=== PATIENT | female | born 1995 | race Caucasian/White ===

== ENCOUNTER 2017-05-29 23:49 | Inpatient (IN) | payer MEDICAID, OTHER, SELFPAY ==
[~2017-05-29] VITALS: Ht 144.8 cm; Wt 41.2 kg
[2017-05-30] MEDS ORDERED: LORazepam INTENSOL 2 MG/ML PO ONE
[2017-05-30] MEDS ORDERED: LORazepam 2 MG/ML, 1ML ONE ×2 (00:16→01:32)
[2017-05-30 00:30] LABS: ASPARTATE AMINO TRANSFERASE 23 U/L (15-37); BLOOD UREA NITROGEN 7 mg/dL (7-18)
[2017-05-30] MEDS ORDERED: LORazepam 2 MG/ML, 1ML IVPush ONE ×2 (00:30→01:30)
[2017-05-30] MEDS ORDERED: SODIUM CHLORIDE 0.9% 1,000ML IVBOLUS ONE (00:30)
[2017-05-30 00:45] LABS: ABG COLLECTION SITE RIGHT RADIAL; COLLATERAL CIRCULATION TESTING NORMAL
[2017-05-30] MEDS ORDERED: POTASSIUM CHLORIDE 20 MEQ in SODIUM CHLORIDE 0.9% 1,000 ML IV ONE (01:38)
[2017-05-30] MEDS ORDERED: LORazepam 2 MG/ML, 1ML IVPush PRN (02:00)
[2017-05-30] MEDS ORDERED: NS + 20MEQ KCL 1,000 ML IV ONE (02:37)
[2017-05-30] MEDS ORDERED: DIVALPROEX 500 MG TABLET.DR PO ONE (03:00)
[2017-05-30] MEDS ORDERED: DIVALPROEX 125 MG CAP.SPRINK PO ONE ×2 (03:00)
[2017-05-30] MEDS ORDERED: NS + 20MEQ KCL 1,000 ML IV SCH (04:07)
[2017-05-30 04:22] VITALS: BP 109/72
[2017-05-30] MEDS ORDERED: ONDANSETRON 2MG/ML, 2ML IVPush PRN (04:30)
[2017-05-30] MEDS ORDERED: morphine SULFATE 10 MG/ML, 1ML IVPush PRN (04:30)
[2017-05-30] MEDS ORDERED: ACETAMINOPHEN 650 MG/20.3 ML UDC PO PRN (04:30)
[2017-05-30] MEDS ORDERED: POLYETHYLENE GLYCOL 17 GM PACKET PO PRN (04:30)
[2017-05-30] MEDS ORDERED: ENOXAPARIN 40 MG/0.4 ML SQ SCH (04:30)
[2017-05-30] MEDS ORDERED: DOCUSATE 100 MG CAPSULE PO PRN (04:30)
[2017-05-30] MEDS: DIVALPROEX 125 MG CAP.SPRINK PEG SCH ×2 (05:26→12:40)
[2017-05-30] MEDS ORDERED: LORA-446 PO ×2 (05:39→11:48)
[2017-05-30] MEDS ORDERED: [UNRECOGNIZED DRUG - CODE] GT (05:39)
[2017-05-30] MEDS ORDERED: PHARMACY MAY ADJ FOR RENAL FX MC SCH (07:30)
[2017-05-30] MEDS ORDERED: LIDOCAINE-MPF 1%, 2ML ENDO PRN (07:30)
[2017-05-30] MEDS ORDERED: ALBUTEROL/IPRATROPIUM 2.5MG/0.5MG, 3 ML INLINE SCH (07:30)
[2017-05-30] MEDS ORDERED: SENNA/DOCUSATE TABLET PO SCH (09:00)
[2017-05-30] MEDS ORDERED: DIVA125C PEG (11:48)
== END 2017-05-30 16:00 | disposition home or self-care (01) | DRG 101 ==
LOC: ED 05-30 00:13 → EDIP 05-30 01:38 → CCU 05-30 03:52
PROVIDERS: ADMIT Family Medicine; ATTEND Family Medicine
PROC: 0T9B70Z Drainage of Bladder with Drainage Device, Via Natural or Artificial Opening (ICD-10-PCS; principal; 2017-05-30)
PROC: 5A1935Z Respiratory Ventilation, Less than 24 Consecutive Hours (ICD-10-PCS; 2017-05-30)
DX: G40.909 Epilepsy, unspecified, not intractable, without status epilepticus (principal); Z99.11 Dependence on respirator [ventilator] status; J96.10 Chronic respiratory failure, unspecified whether with hypoxia or hypercapnia; G80.9 Cerebral palsy, unspecified; Q90.9 Down syndrome, unspecified; Z93.0 Tracheostomy status; Z93.1 Gastrostomy status
CPT/HCPCS: 36415; 36600; 71010; 80053; 80164; 81001; 82803; 85025; 87081; 94002; 94003; 96361; 96365; 96375; 96376; J1650; J3480; J2060; J7030

== ENCOUNTER 2018-08-07 07:50 | Inpatient (IN) | payer MEDICAID ==
[~2018-08-07] VITALS: Ht 147.3 cm; Wt 35.8 kg
[~2018-08-07 07:50] MED LIST: DIVA125C2 PEG; LORA-446 PO; [UNRECOGNIZED DRUG - CODE] GT
[2018-08-07] MEDS ORDERED: SODIUM CHLORIDE 0.9% 1,000 ML IV ONE (07:56)
[2018-08-07] MEDS ORDERED: SODIUM CHLORIDE 0.9% 1,000ML IVBOLUS ONE (08:00)
[2018-08-07] MEDS ORDERED: SODIUM CHLORIDE FLUSH 10ML SYR IVF ONE (08:00)
[2018-08-07 08:15] LABS: MEAN CORPUSCULAR HEMOGLOBIN 28.1 pg (27.0-34.8); MEAN CORPUSCULAR HGB CONC 31.5 g/dL (32.4-35.8); MEAN CORPUSCULAR VOLUME 89.3 fL (80-100); MEAN PLATELET VOLUME 8.6 fL (7.4-10.4); PLATELET COUNT 264 x10^3/uL (130-400); RED BLOOD COUNT 4.83 x10^6/uL (3.82-5.3); RED CELL DISTRIBUTION WIDTH 15.8 % (9.6-15.2)
[2018-08-07 08:28] LABS: ALANINE AMINOTRANSFERASE 22 U/L (12-78); ALBUMIN 2.8 g/dL (3.4-5.0); ANION GAP 21 mmol/L (5-15); CALCIUM 9.7 mg/dL (8.5-10.1); CHLORIDE 102 mmol/L (98-107); CREATININE 0.83 mg/dL (0.55-1.02)
[2018-08-07 08:29] LABS: MD YES
[2018-08-07 08:30] LABS: ALKALINE PHOSPHATASE 110 U/L (45-117); BILIRUBIN,TOTAL 0.4 mg/dL (0.2-1.0); TOTAL PROTEIN 8.5 g/dL (6.4-8.2)
[2018-08-07] MEDS ORDERED: PLEASE ENTER HEIGHT AND WEIGHT MC SCH (08:30)
[2018-08-07 08:31] LABS: BAND#(MANUAL) 0.53 x10^3/uL; BANDS%(MANUAL) 4 % (0-7); BASOS#(MANUAL) 0.13 x10^3/uL (0-0.1); BASOS% (MANUAL) 1 % (0-1); EOS#(MANUAL) 0.13 x10^3/uL (0.0-0.4); EOS% (MANUAL) 1 % (1-7)
[2018-08-07 08:32] LABS: LYMPH#(MANUAL) 8.38 x10^3/uL (1-3.4); LYMPHS% (MANUAL) 63 % (22-44); MONOS% (MANUAL) 9 % (2-9); SEG#(MANUAL) 2.93 x10^3/uL (1.8-6.8); SEGS% (MANUAL) 22 % (42-75)
[2018-08-07 08:33] LABS: <PLATELET ESTIMATE> ADEQUATE; <PLT MORPHOLOGY> NORMAL PLT MORPH; ANISOCYTOSIS 1+
[2018-08-07 08:38] LABS: INTERNATIONAL NORMALIZED RATIO 1.16 (0.93-1.1)
[2018-08-07 08:44] LABS: FIO2 75 %
[2018-08-07] MEDS ORDERED: NOREPINEPHRINE 1 MG/ML, 4ML ONE (08:44)
[2018-08-07] MEDS ORDERED: SODIUM CHLORIDE 0.9%, 250ML ONE (08:44)
[2018-08-07] MEDS ORDERED: SODIUM CHLORIDE FLUSH 10ML SYR IVF PRN (09:00)
[2018-08-07] MEDS ORDERED: NOREPINEPHRINE 4 MG in SODIUM CHLORIDE 0.9% 246 ML IV PRN ×3 (09:00→12:30)
[2018-08-07] MEDS ORDERED: LORA2ORA2 GT (09:17)
[2018-08-07] MEDS ORDERED: DIAZ2.5K3 PR (09:19)
[2018-08-07] MEDS ORDERED: BECL10.62 INH (09:21)
[2018-08-07] MEDS ORDERED: ALBU18HF INH (09:21)
[2018-08-07] MEDS: SODIUM CHLORIDE 0.9% 1,000 ML IV SCH ×2 (09:57→23:35)
[2018-08-07] MEDS ORDERED: POLYETHYLENE GLYCOL 17 GM PACKET PO PRN (10:00)
[2018-08-07] MEDS ORDERED: BISACODYL 10 MG SUPP PR PRN ×2 (10:00→10:30)
[2018-08-07 10:08] LABS: TROPONIN I 0.316 ng/mL (0.000-0.045)
[2018-08-07] MEDS ORDERED: PIPERACILLIN/TAZO/PMX 3.375GM 50 ML ONE (10:17)
[2018-08-07] MEDS ORDERED: PANTOPRAZOLE 40 MG IV ONE (10:17)
[2018-08-07] MEDS: PANTOPRAZOLE 40 MG IV IVPush SCH (10:25)
[2018-08-07] MEDS ORDERED: FAMOTIDINE 20 MG/2 ML IV SCH (10:30)
[2018-08-07] MEDS ORDERED: SENNA/DOCUSATE TABLET NG PRN (10:30)
[2018-08-07] MEDS ORDERED: PHARMACY MAY ADJ FOR RENAL FX MC SCH (10:30)
[2018-08-07] MEDS ORDERED: LACTULOSE 20 GM/30 ML UDC NG PRN (10:30)
[2018-08-07] MEDS ORDERED: LIDOCAINE-MPF 1%, 2ML ENDO PRN (10:30)
[2018-08-07] MEDS ORDERED: SENNOSIDES 8.8 MG/5 ML ORAL SOL NG PRN (10:30)
[2018-08-07 10:36] LABS: FIO2 75 %
[2018-08-07] MEDS: PIPERACILLIN/TAZO/PMX 3.375GM 50 ML IV SCH ×3 (10:36→22:08)
[2018-08-07 10:37] VITALS: BP 130/87
[2018-08-07 13:09] LABS: FIO2 50 %
[2018-08-07] MEDS ORDERED: ATROPINE SYRINGE 0.1 MG/ML, 10ML ONE (13:15)
[2018-08-07] MEDS ORDERED: POTASSIUM PHOSPHATE 44 MEQ in SODIUM CHLORIDE 0.9% 500 ML IV ONE ×2 (14:00→17:30)
[2018-08-07] MEDS: KSCALE TO 4.0 IV SCH ×3 (14:00→22:00)
[2018-08-07] MEDS ORDERED: FENTANYL PF 2,500 MCG in SODIUM CHLORIDE 0.9% 200 ML IV PRN (14:30)
[2018-08-07] MEDS ORDERED: POTASSIUM CHLORIDE 30 MEQ in SODIUM CHLORIDE 0.9% 500 ML IV ONE (14:30)
[2018-08-07] MEDS ORDERED: CALCIUM CHLORIDE 13.6 MEQ in DEXTROSE 5% 100 ML IV PRN (14:30)
[2018-08-07] MEDS ORDERED: SODIUM PHOSPHATE 20 MMOL in SODIUM CHLORIDE 0.9% 250 ML IV PRN (14:30)
[2018-08-07] MEDS ORDERED: MAGNESIUM SULFATE 1 GM in SODIUM CHLORIDE 0.9% 50 ML IV PRN (14:30)
[2018-08-07] MEDS: BUSPIRONE 10 MG TABLET NG SCH ×2 (15:05→22:08)
[2018-08-07] MEDS ORDERED: MIDAZOLAM 1 MG/ML, 5ML ONE (15:29)
[2018-08-07] MEDS: MIDAZOLAM 1 MG/ML, 5ML IVPush PRN ×2 (15:34→22:09)
[2018-08-07] MEDS: ALBUTEROL/IPRATROPIUM 2.5MG/0.5MG, 3 ML INLINE SCH ×2 (18:30→22:30)
[2018-08-07] MEDS: ARTIFICIAL TEARS OINT 3.5 GM EACHEYE SCH (22:08)
[2018-08-07] MEDS ORDERED: POTASSIUM CHLORIDE PMX 100 ML IV ONE (23:00)
[2018-08-07] MEDS ORDERED: POTASSIUM CHLORIDE 10 MEQ in SODIUM CHLORIDE 0.9% 250 ML IV ONE (23:00)
[2018-08-08] MEDS: KSCALE TO 4.0 IV SCH ×6 (02:00→22:00)
[2018-08-08] MEDS: ALBUTEROL/IPRATROPIUM 2.5MG/0.5MG, 3 ML INLINE SCH ×6 (02:05→22:30)
[2018-08-08] MEDS: MIDAZOLAM 1 MG/ML, 5ML IVPush PRN ×5 (03:46→17:20)
[2018-08-08] MEDS: PIPERACILLIN/TAZO/PMX 3.375GM 50 ML IV SCH ×4 (04:55→22:36)
[2018-08-08 05:31] LABS: ALANINE AMINOTRANSFERASE 31 U/L (12-78); ALBUMIN 2.7 g/dL (3.4-5.0); ANION GAP 16 mmol/L (5-15); CALCIUM 8.8 mg/dL (8.5-10.1); CHLORIDE 109 mmol/L (98-107); CREATININE 0.54 mg/dL (0.55-1.02)
[2018-08-08 05:32] LABS: ALKALINE PHOSPHATASE 101 U/L (45-117); BILIRUBIN,TOTAL 0.3 mg/dL (0.2-1.0); TOTAL PROTEIN 8.5 g/dL (6.4-8.2)
[2018-08-08 05:38] LABS: MEAN CORPUSCULAR HGB CONC 33.2 g/dL (32.4-35.8); MEAN CORPUSCULAR VOLUME 87.2 fL (80-100); MEAN PLATELET VOLUME 8.6 fL (7.4-10.4); PLATELET COUNT 201 x10^3/uL (130-400); RED BLOOD COUNT 5.47 x10^6/uL (3.82-5.3); RED CELL DISTRIBUTION WIDTH 15.5 % (9.6-15.2)
[2018-08-08] MEDS: ARTIFICIAL TEARS OINT 3.5 GM EACHEYE SCH ×3 (06:04→22:36)
[2018-08-08] MEDS: BUSPIRONE 10 MG TABLET NG SCH (06:05)
[2018-08-08 06:07] LABS: MD YES
[2018-08-08 06:09] LABS: BAND#(MANUAL) 1.14 x10^3/uL; BANDS%(MANUAL) 7 % (0-7); SEGS% (MANUAL) 81 % (42-75)
[2018-08-08 06:12] LABS: <PLATELET ESTIMATE> ADEQUATE; <PLT MORPHOLOGY> NORMAL PLT MORPH; <RBC MORPHOLOGY> NORMAL
[2018-08-08 06:13] LABS: LYMPHS% (MANUAL) 8 % (22-44); MONOS#(MANUAL) 0.65 x10^3/uL (0.3-2.7); MONOS% (MANUAL) 4 % (2-9)
[2018-08-08] MEDS: PANTOPRAZOLE 40 MG IV IVPush SCH (07:33)
[2018-08-08] MEDS ORDERED: POTASSIUM CHLORIDE 10 MEQ in SODIUM CHLORIDE 0.9% 250 ML IV ONE (09:30)
[2018-08-08] MEDS ORDERED: MAGNESIUM SULFATE 4 GM in SODIUM CHLORIDE 0.9% 100 ML IV ONE (09:30)
[2018-08-08] MEDS ORDERED: MAGNESIUM SULFATE PMX 4GM/100M 100 ML IVPB ONE (09:30)
[2018-08-08] MEDS: FENTANYL PF 100 MCG/2ML IVPush PRN ×3 (09:45→22:36)
[2018-08-08] MEDS ORDERED: POTASSIUM CHLORIDE PMX 100 ML IV ONE (15:30)
[2018-08-08] MEDS: PROPOFOL 100 ML IV PRN (19:33)
[2018-08-08] MEDS: SODIUM CHLORIDE 0.9% 1,000 ML IV SCH (22:36)
[2018-08-09] MEDS: KSCALE TO 4.0 IV SCH ×7 (02:00→22:28)
[2018-08-09] MEDS: ALBUTEROL/IPRATROPIUM 2.5MG/0.5MG, 3 ML INLINE SCH ×6 (02:35→22:30)
[2018-08-09] MEDS: PIPERACILLIN/TAZO/PMX 3.375GM 50 ML IV SCH ×4 (04:44→22:50)
[2018-08-09] MEDS: ARTIFICIAL TEARS OINT 3.5 GM EACHEYE SCH ×3 (05:47→22:50)
[2018-08-09 06:38] LABS: MEAN CORPUSCULAR HEMOGLOBIN 28.2 pg (27.0-34.8); MEAN CORPUSCULAR HGB CONC 33.3 g/dL (32.4-35.8); MEAN CORPUSCULAR VOLUME 84.7 fL (80-100); MEAN PLATELET VOLUME 8.4 fL (7.4-10.4); PLATELET COUNT 259 x10^3/uL (130-400); RED BLOOD COUNT 4.32 x10^6/uL (3.82-5.3); RED CELL DISTRIBUTION WIDTH 16.2 % (9.6-15.2)
[2018-08-09 06:47] LABS: ANION GAP 11 mmol/L (5-15); CALCIUM 8.8 mg/dL (8.5-10.1); CHLORIDE 106 mmol/L (98-107); CREATININE 0.34 mg/dL (0.55-1.02)
[2018-08-09 06:54] LABS: MD YES
[2018-08-09 06:56] LABS: <PLATELET ESTIMATE> ADEQUATE; <PLT MORPHOLOGY> NORMAL PLT MORPH; <RBC MORPHOLOGY> NORMAL; BAND#(MANUAL) 1.94 x10^3/uL; BANDS%(MANUAL) 12 % (0-7); LYMPH#(MANUAL) 0.65 x10^3/uL (1-3.4); LYMPHS% (MANUAL) 4 % (22-44); SEG#(MANUAL) 13.61 x10^3/uL (1.8-6.8); SEGS% (MANUAL) 84 % (42-75)
[2018-08-09] MEDS ORDERED: POTASSIUM CHLORIDE 10 MEQ in SODIUM CHLORIDE 0.9% 250 ML IV ONE (07:00)
[2018-08-09] MEDS: PANTOPRAZOLE 40 MG IV IVPush SCH (08:18)
[2018-08-09] MEDS: SODIUM CHLORIDE 0.9% 1,000 ML IV SCH (14:06)
[2018-08-09] MEDS: VALPROATE SODIUM 250 MG/5 ML ORAL SOLN GT SCH (21:12)
[2018-08-10 02:26] LABS: MEAN CORPUSCULAR HEMOGLOBIN 28.3 pg (27.0-34.8); MEAN CORPUSCULAR HGB CONC 33.1 g/dL (32.4-35.8); MEAN CORPUSCULAR VOLUME 85.3 fL (80-100); MEAN PLATELET VOLUME 8.5 fL (7.4-10.4); PLATELET COUNT 273 x10^3/uL (130-400); RED BLOOD COUNT 4.52 x10^6/uL (3.82-5.3); RED CELL DISTRIBUTION WIDTH 16.4 % (9.6-15.2)
[2018-08-10] MEDS: ALBUTEROL/IPRATROPIUM 2.5MG/0.5MG, 3 ML INLINE SCH ×6 (02:30→22:30)
[2018-08-10 02:38] LABS: ANION GAP 12 mmol/L (5-15); CALCIUM 8.2 mg/dL (8.5-10.1); CHLORIDE 105 mmol/L (98-107); CREATININE 0.25 mg/dL (0.55-1.02)
[2018-08-10 02:53] LABS: BASOPHILS # (AUTO) 0.05 x10^3/uL (0-0.1); BASOPHILS % (AUTO) 0 % (0-1); EOSINOPHILS % (AUTO) 0 % (1-7); LYMPHOCYTES % (AUTO) 13 % (22-44); MD SCAN; MONOCYTES # (AUTO) 1.34 x10^3/uL (0.2-0.8); MONOCYTES % (AUTO) 7 % (2-9); NEUTROPHILS # (AUTO) 15.16 x10^3/uL (1.8-6.8); NEUTROPHILS % (AUTO) 80 % (42-75)
[2018-08-10] MEDS: SODIUM CHLORIDE 0.9% 1,000 ML IV SCH (03:08)
[2018-08-10] MEDS: ARTIFICIAL TEARS OINT 3.5 GM EACHEYE SCH ×3 (05:08→22:48)
[2018-08-10] MEDS: PIPERACILLIN/TAZO/PMX 3.375GM 50 ML IV SCH ×4 (05:08→22:49)
[2018-08-10] MEDS: PANTOPRAZOLE 40 MG IV IVPush SCH (08:56)
[2018-08-10] MEDS: DOXYCYCLINE 100 MG in DEXTROSE 5% 250 ML IV SCH ×2 (08:56→20:13)
[2018-08-10] MEDS: VALPROATE SODIUM 250 MG/5 ML ORAL SOLN GT SCH ×3 (08:57→20:13)
[2018-08-10] MEDS: FENTANYL PF 100 MCG/2ML IVPush PRN (14:21)
[2018-08-10] MEDS: PROPOFOL 100 ML IV PRN (14:21)
[2018-08-10] MEDS ORDERED: GADOBUTROL 2 MMOL/2 ML VIAL ONE (16:55)
[2018-08-11 02:22] LABS: ANION GAP 11 mmol/L (5-15); CALCIUM 8.5 mg/dL (8.5-10.1); CHLORIDE 95 mmol/L (98-107); CREATININE 0.38 mg/dL (0.55-1.02); TRIGLYCERIDES 191 mg/dL (50-200)
[2018-08-11] MEDS: ALBUTEROL/IPRATROPIUM 2.5MG/0.5MG, 3 ML INLINE SCH ×6 (02:30→23:00)
[2018-08-11 02:37] LABS: BASOPHILS # (AUTO) 0.03 x10^3/uL (0-0.1); BASOPHILS % (AUTO) 0 % (0-1); EOSINOPHILS # (AUTO) 0.08 x10^3/uL (0-0.4); EOSINOPHILS % (AUTO) 1 % (1-7); LYMPHOCYTES # (AUTO) 2.85 x10^3/uL (1-3.4); LYMPHOCYTES % (AUTO) 28 % (22-44); MD NO; MEAN CORPUSCULAR HEMOGLOBIN 28.9 pg (27.0-34.8); MEAN CORPUSCULAR HGB CONC 34.2 g/dL (32.4-35.8); MEAN CORPUSCULAR VOLUME 84.6 fL (80-100); MEAN PLATELET VOLUME 8.7 fL (7.4-10.4); MONOCYTES # (AUTO) 1.16 x10^3/uL (0.2-0.8); MONOCYTES % (AUTO) 11 % (2-9); NEUTROPHILS # (AUTO) 6.26 x10^3/uL (1.8-6.8); NEUTROPHILS % (AUTO) 60 % (42-75); PLATELET COUNT 251 x10^3/uL (130-400); RED BLOOD COUNT 4.43 x10^6/uL (3.82-5.3); RED CELL DISTRIBUTION WIDTH 16.4 % (9.6-15.2)
[2018-08-11] MEDS ORDERED: SODIUM CHLORIDE 0.9% 500 ML IV SCH (03:00)
[2018-08-11] MEDS: ARTIFICIAL TEARS OINT 3.5 GM EACHEYE SCH ×3 (05:40→22:23)
[2018-08-11] MEDS: PIPERACILLIN/TAZO/PMX 3.375GM 50 ML IV SCH ×4 (05:40→22:23)
[2018-08-11] MEDS ORDERED: POTASSIUM CHLORIDE 10% 20 MEQ/15 ML UDC PO ONE (07:30)
[2018-08-11] MEDS: DOXYCYCLINE 100 MG in DEXTROSE 5% 250 ML IV SCH (07:49)
[2018-08-11] MEDS: PANTOPRAZOLE 40 MG IV IVPush SCH (07:50)
[2018-08-11] MEDS: VALPROATE SODIUM 250 MG/5 ML ORAL SOLN GT SCH ×3 (07:50→20:11)
[2018-08-11] MEDS ORDERED: DOXYCYCLINE 100 MG in DEXTROSE 5% 250 ML IV SCH (19:30)
[2018-08-11] MEDS ORDERED: SODIUM CHLORIDE 0.9%, 500ML IVBOLUS ONE (19:30)
[2018-08-11] MEDS: FENTANYL PF 100 MCG/2ML IVPush PRN (20:11)
[2018-08-11 21:14] LABS: ANION GAP 10 mmol/L (5-15); CALCIUM 7.8 mg/dL (8.5-10.1); CHLORIDE 103 mmol/L (98-107); CREATININE 0.35 mg/dL (0.55-1.02)
[2018-08-11] MEDS ORDERED: MAGNESIUM SULFATE 1 GM in SODIUM CHLORIDE 0.9% 50 ML IV ONE (22:00)
[2018-08-11] MEDS ORDERED: POTASSIUM CHLORIDE 10% 40 MEQ/30 ML UDC PO ONE (22:00)
[2018-08-12] MEDS: FENTANYL PF 100 MCG/2ML IVPush PRN (01:24)
[2018-08-12] MEDS ORDERED: POTASSIUM CHLORIDE 10% 40 MEQ/30 ML UDC PO ONE (02:00)
[2018-08-12] MEDS: ALBUTEROL/IPRATROPIUM 2.5MG/0.5MG, 3 ML INLINE SCH ×4 (02:26→14:42)
[2018-08-12] MEDS: PIPERACILLIN/TAZO/PMX 3.375GM 50 ML IV SCH (04:14)
[2018-08-12 04:30] LABS: BASOPHILS # (AUTO) 0.02 x10^3/uL (0-0.1); BASOPHILS % (AUTO) 0 % (0-1); EOSINOPHILS # (AUTO) 0.11 x10^3/uL (0-0.4); EOSINOPHILS % (AUTO) 1 % (1-7); LYMPHOCYTES # (AUTO) 2.48 x10^3/uL (1-3.4); LYMPHOCYTES % (AUTO) 28 % (22-44); MD NO; MEAN CORPUSCULAR HEMOGLOBIN 28.3 pg (27.0-34.8); MEAN CORPUSCULAR HGB CONC 33.2 g/dL (32.4-35.8); MEAN CORPUSCULAR VOLUME 85.3 fL (80-100); MEAN PLATELET VOLUME 8.4 fL (7.4-10.4); MONOCYTES # (AUTO) 0.94 x10^3/uL (0.2-0.8); MONOCYTES % (AUTO) 11 % (2-9); NEUTROPHILS # (AUTO) 5.18 x10^3/uL (1.8-6.8); NEUTROPHILS % (AUTO) 59 % (42-75); PLATELET COUNT 244 x10^3/uL (130-400); RED BLOOD COUNT 4.44 x10^6/uL (3.82-5.3); RED CELL DISTRIBUTION WIDTH 16.4 % (9.6-15.2)
[2018-08-12 04:42] LABS: ANION GAP 8 mmol/L (5-15); CALCIUM 8.5 mg/dL (8.5-10.1); CHLORIDE 109 mmol/L (98-107); CREATININE 0.36 mg/dL (0.55-1.02)
[2018-08-12] MEDS: ARTIFICIAL TEARS OINT 3.5 GM EACHEYE SCH ×2 (06:11→13:48)
[2018-08-12] MEDS ORDERED: ERTAPENEM 1 GM in SODIUM CHLORIDE 0.9% 50 ML IV SCH (07:30)
[2018-08-12] MEDS: VALPROATE SODIUM 250 MG/5 ML ORAL SOLN GT SCH ×2 (10:53→16:00)
[2018-08-12] MEDS ORDERED: ACETAMINOPHEN 650 MG/20.3 ML UDC PO PRN (11:00)
[2018-08-12] MEDS ORDERED: IBUPROFEN 200 MG TABLET PO PRN (12:00)
[2018-08-12] MEDS ORDERED: SODIUM CHLORIDE 0.9%, 500ML IVBOLUS ONE (12:00)
[2018-08-12] MEDS ORDERED: morphine SULFATE 10 MG/ML, 1ML ONE (16:17)
[2018-08-12] MEDS ORDERED: ATROPINE OPHTH SOLN 1%, 2ML PO PRN (16:30)
[2018-08-12] MEDS ORDERED: LORazepam 2 MG/ML, 1ML IV ONE (16:30)
[2018-08-12] MEDS ORDERED: LORazepam 2 MG/ML, 1ML IV PRN (17:00)
[2018-08-12] MEDS ORDERED: morphine SULFATE 10 MG/ML, 1ML IV ONE (17:00)
[2018-08-12] MEDS ORDERED: morphine SULFATE 10 MG/ML, 1ML IV PRN (17:00)
== END 2018-08-12 22:25 | disposition expired | DRG 207 ==
LOC: ED 08:34 → EDIP 08:35 → ED 09:49 → CCU 11:13 → 3NW 08-12 20:10
PROVIDERS: ADMIT Hospitalist; ATTEND Hospitalist
PROC: 5A12012 Performance of Cardiac Output, Single, Manual (ICD-10-PCS; principal; 2018-08-07)
PROC: 5A1955Z Respiratory Ventilation, Greater than 96 Consecutive Hours (ICD-10-PCS; 2018-08-07)
DX: J95.09 Other tracheostomy complication (principal); J69.0 Pneumonitis due to inhalation of food and vomit; J96.21 Acute and chronic respiratory failure with hypoxia; Z99.11 Dependence on respirator [ventilator] status; G93.40 Encephalopathy, unspecified; E87.2 Acidosis; G40.909 Epilepsy, unspecified, not intractable, without status epilepticus; G80.9 Cerebral palsy, unspecified; Z51.5 Encounter for palliative care; I10 Essential (primary) hypertension; I46.9 Cardiac arrest, cause unspecified; R00.0 Tachycardia, unspecified; L68.0 Hirsutism; M41.9 Scoliosis, unspecified; Y83.8 Other surgical procedures as the cause of abnormal reaction of the patient, or of later complication, without mention of misadventure at the time of the procedure; Q90.9 Down syndrome, unspecified; Z93.1 Gastrostomy status; Y92.89 Other specified places as the place of occurrence of the external cause
CPT/HCPCS: 36415; 36600; 51702; 99291; J7620; 70553; 71045; 80048; 80053; 80164; 82330; 82803; 83605; 83735; 84100; 84132; 84478; 84484; 85025; 85610; 85730; 87040; 87070; 87077; 87081; 87186; 87205; 92950; 93005; 94002; 94003; 94640; 95812; 96374; A9585; G0378; J1335; J2250; J2543; J2704; J3010; J3475; J3480; J7060; C9113; J2060; J2270; J7030; J7040; J7050